=== PATIENT | male | born 1995 | race African-American/Black ===

== ENCOUNTER 2020-03-27 14:36 | Emergency (ER) | payer SELFPAY ==
--- OUTSIDE RECORDS SUMMARY | 2020-03-27 14:38 | XMS REPORT | Continuity of Care Document ---
:1995 Author Organization [facility] Address [address] [place] [address] [address]. [address] [place] [address] Care Team Providers Name Role Phone Unavailable Unavailable Unavailable Problems This patient has no known problems. Allergies, Adverse Reactions, Alerts This patient has no known allergies or adverse reactions. Medications This patient has no known medications. Procedures This patient has no known procedures. Results This patient has no known results.
[2020-03-27 15:09] LABS: Absolute Lymphocytes (CBC) 1.6 K/uL (0.7-4.9); Basophils % 0.6 % (0-1.3); Hematocrit 43.4 % (39.6-49.0); Lymphocytes % 16.4 % (15.3-44.8); RBC Red Blood Cell Count 5.45 M/uL (4.33-5.43)
--- NOTE | 2020-03-27 15:13 | ER ---
Nurse's Notes [facility] Name: Mireya Carolina Age: 24 yrs Sex: Male : 1995 Arrival Date: 03/27/2020 Time: 14:40 Bed 7 Private MD: Diagnosis: Insomnia, unspecified;Bipolar disorder Presentation: 03/27 14:45 Chief complaint: Patient states: Hearing voices, going crazy, and wanting to hurt ll1 others for 3 days. Coronavirus screen: Client denies travel out of the [place] in the last 14 days. At this time, the client does not indicate any symptoms associated with coronavirus-19. Ebola Screen: Patient denies travel to an Ebola-affected area in the 21 days before illness onset. Initial Sepsis Screen: Does the patient meet any 2 criteria? No. Patient's initial sepsis screen is negative. Does the patient have a suspected source of infection? No. Patient's initial sepsis screen is negative. Risk Assessment: Do you want to hurt yourself or someone else? Patient reports desire/thoughts of hurting themselves or someone else. Provider notified. Onset of symptoms was March 25, 2020. 14:45 Method Of Arrival: Ambulatory ll1 14:45 Acuity: NIKKY 2 ll1 Historical: - Allergies: 14:44 No Known Allergies; ll1 - PMHx: 14:44 Bipolar disorder; ll1 - PSHx: 14:44 None; ll1 - Immunization history:: Flu vaccine is not up to date. - Social history:: Smoking status: Patient reports the use of cigarette tobacco products, smokes two packs cigarettes per day. Patient uses alcohol, on a daily basis. Screenin:15 Abuse screen: Denies threats or abuse. Nutritional screening: No deficits noted. em Tuberculosis screening: No symptoms or risk factors identified. Fall Risk None identified. Assessment: 15:15 General: Appears in no apparent distress. comfortable, Behavior is calm, cooperative, em quiet. Pain: Denies pain. Neuro: Level of Consciousness is awake, alert, obeys commands, reports auditory hallucinations, denies SI, reports HI. Cardiovascular: Capillary refill < 3 seconds Patient's skin is warm and dry. Respiratory: Airway is patent Respiratory effort is even, unlabored, Respiratory pattern is regular, symmetrical. Derm: Skin is intact, is healthy with good turgor, Skin is pink, warm \T\ dry. Musculoskeletal: Capillary refill < 3 seconds, Range of motion: intact in all extremities. 16:25 Reassessment: Patient appears in no apparent distress at this time. Patient and/or em family updated on plan of care and expected duration. Pain level reassessed. Patient is alert, oriented x 3, equal unlabored respirations, skin warm/dry/pink. 18:21 Reassessment: [facility] screener at bedside. em 18:36 Reassessment: Yen from [facility] recommends outpatient therapy for pt, grandmother em states she feels comfortable taking pt home, Yen will arrange for an outpatient appointment next week. 19:00 Reassessment: Patient appears in no apparent distress at this time. Patient and/or tw2 family updated on plan of care and expected duration. Pain level reassessed. Patient is alert, oriented x 3, equal unlabored respirations, skin warm/dry/pink. Psych: 15:15 Subjective: Patient's mood is sad, Delusions are denied, Hallucinations are auditory, em Having thoughts of homicide. Denies plan. Objective: Patient is cooperative, Speech is normal, Affect is appropriate. Interventions: Patient placed in hospital gown. Searched person for dangerous items. Suicide Risk Assessment: Sad Person Scale: Sex of patient: Male: Score 1 point. Age of patient: Score 1 point if patient 15-34. Depression: Score 0 point if signs of depression are not present. Previous Attempt: Score 0 point if patient has not previously attempted suicide. Substance Abuse: Score 0 point if patient does not abuse alcohol or drugs. Rational Thinking: Score 0 point if patient has rational thinking. Social Support: Score 1 point if social support is lacking and/or unavailable. Organized Plan: Score 0 if patient did not have an organized plan in place. Relationship: Score 1 point if patient is , , , or for a single male Chronic Sickness: Score 0 point if patient does not have a chronic illness, debilitating, or severe disorder. TOTAL POINTS: If total points are 3-4, proposed clinical action is close follow-up/consider hospitalization. Safety Checks: Personal items have been removed. Door is open. Visitors are present. Pt denies substance abuse. Commitment: Patient will be a voluntary commitment. Vital Signs: 14:45 BP 131 / 85; Pulse 63; Resp 17; Temp 98.6; Pulse Ox 100% ; Height 5 ft. 4 in. (162.56 ll1 cm); Pain 0/10; 17:33 BP 122 / 90; Pulse 57; Resp 17; Pulse Ox 99% on R/A; mt 18:59 BP 124 / 76; Pulse 64; Resp 17; Pulse Ox 99% on R/A; tw2 ED Course: 14:40 Patient arrived in ED. mr 14:41 Sam Yanez MD is Attending Physician. jt 14:46 Triage completed. ll1 14:46 Arm band placed on Patient placed in an exam room, on a stretcher. ll1 14:55 Chaparro oBrrego, RN is Primary Nurse. em 15:15 Patient has correct armband on for positive identification. Placed in gown. Bed in low em position. Call light in reach. 15:15 Inserted saline lock: 20 gauge in left antecubital area, using aseptic technique. Blood mt collected. 15:24 EKG done, by ED staff, reviewed by Sam Yanez MD. mt 15:30 [facility], sitting one on one with patient. mt 16:29 Faxed patient records to the following facilities in the attempt to transfer/ [facility], [facility], [facility], [facility], [facility], [facility], [facility] , [facility] , [facility] [place], [facility], [facility] and [facility]. 17:29 called the [facility] Crisis Line at [phone]/ Marquita will be paging out the screener eb quality control inspector heading to call us back. 18:10 the [facility] Screener here to evaluate the patient. eb 18:17 Salina from [facility] called to decline patient in transfer due to eb being at capacity. 18:45 No provider procedures requiring assistance completed. Patient did not have IV access em during this emergency room visit. Administered Medications: 15:09 Drug: NS 0.9% 1000 ml Route: IV; Rate: 1 bolus; Site: left antecubital; em 16:23 Follow up: IV Status: Completed infusion; IV Intake: 1000ml em 16:30 Drug: Ativan 1 mg Route: IVP; Site: left antecubital; em 17:30 Follow up: Response: No adverse reaction; Marked relief of symptoms; Anxiety decreased em Intake: 16:23 IV: 1000ml; Total: 1000ml. em Outcome: 15:12 ER care complete, transfer ordered by . [facility] 18:45 Discharge ordered by . [facility] 18:59 Discharged to home ambulatory, with family. tw2 18:59 Condition: stable 18:59 Discharge instructions given to patient, family, Instructed on discharge instructions, follow up and referral plans. medication usage, Demonstrated understanding of instructions, follow-up care, medications, Prescriptions given X 1. 19:02 Patient left the ED. tw2 Signatures: Sam Yanez MD MD cha Rivera, Mary mr Munoz, Edgar, RN RN Shira Gonzalez RN RN [facility] Fatuma La mt, Elizabeth eb Lewis, Lynsay, RN RN ll1
--- NOTE | 2020-03-27 15:13 | EDPHYS ---
Physician Documentation [facility] Name: Mireya Carolina Age: 24 yrs Sex: Male : 1995 Arrival Date: 03/27/2020 Time: 14:40 Bed 7 Private MD: CINDY Physician Sam Yanez HPI: 03/27 14:56 This 24 yrs old Black Male presents to ER via Ambulatory with complaints of Psych jt Problem. 14:56 The patient presents to the emergency department with psychosis, has experienced jt auditory hallucinations. Onset: The symptoms/episode began/occurred 5 day(s) ago. Past psychiatric history: Prior diagnosis: no previous psychiatric diagnosis known. Severity of symptoms: At their worst the symptoms were mild moderate in the emergency department the symptoms are unchanged. The patient has experienced similar episodes in the past, several times. Historical: - Allergies: 14:44 No Known Allergies; ll1 - PMHx: 14:44 Bipolar disorder; ll1 - PSHx: 14:44 None; ll1 - Immunization history:: Flu vaccine is not up to date. - Social history:: Smoking status: Patient reports the use of cigarette tobacco products, smokes two packs cigarettes per day. Patient uses alcohol, on a daily basis. ROS: 14:57 Constitutional: Negative for fever, chills, and weight loss, Eyes: Negative for injury, jt pain, redness, and discharge, ENT: Negative for injury, pain, and discharge, Neck: Negative for injury, pain, and swelling, Cardiovascular: Negative for chest pain, palpitations, and edema, Respiratory: Negative for shortness of breath, cough, wheezing, and pleuritic chest pain, Abdomen/GI: Negative for abdominal pain, nausea, vomiting, diarrhea, and constipation, Back: Negative for injury and pain, : Negative for injury, bleeding, discharge, and swelling, MS/Extremity: Negative for injury and deformity, Skin: Negative for injury, rash, and discoloration, Neuro: Negative for headache, weakness, numbness, tingling, and seizure, Allergy/Immunology: Negative for hives, rash, and allergies, Endocrine: Negative for neck swelling, polydipsia, polyuria, polyphagia, and marked weight changes, Hematologic/Lymphatic: Negative for swollen nodes, abnormal bleeding, and unusual bruising. 14:57 Psych: Positive for auditory hallucinations. Exam: 14:57 Constitutional: This is a well developed, well nourished patient who is awake, alert, jt and in no acute distress. Head/Face: Normocephalic, atraumatic. Eyes: Pupils equal round and reactive to light, extra-ocular motions intact. Lids and lashes normal. Conjunctiva and sclera are non-icteric and not injected. Cornea within normal limits. Periorbital areas with no swelling, redness, or edema. ENT: Nares patent. No nasal discharge, no septal abnormalities noted. Tympanic membranes are normal and external auditory canals are clear. Oropharynx with no redness, swelling, or masses, exudates, or evidence of obstruction, uvula midline. Mucous membranes moist. Neck: Trachea midline, no thyromegaly or masses palpated, and no cervical lymphadenopathy. Supple, full range of motion without nuchal rigidity, or vertebral point tenderness. No Meningismus. Chest/axilla: Normal chest wall appearance and motion. Nontender with no deformity. No lesions are appreciated. Cardiovascular: Regular rate and rhythm with a normal S1 and S2. No gallops, murmurs, or rubs. Normal PMI, no JVD. No pulse deficits. Respiratory: Lungs have equal breath sounds bilaterally, clear to auscultation and percussion. No rales, rhonchi or wheezes noted. No increased work of breathing, no retractions or nasal flaring. Abdomen/GI: Soft, non-tender, with normal bowel sounds. No distension or tympany. No guarding or rebound. No evidence of tenderness throughout. Back: No spinal tenderness. No costovertebral tenderness. Full range of motion. Male : Normal genitalia with no discharge or lesions. Skin: Warm, dry with normal turgor. Normal color with no rashes, no lesions, and no evidence of cellulitis. MS/ Extremity: Pulses equal, no cyanosis. Neurovascular intact. Full, normal range of motion. Neuro: Awake and alert, GCS 15, oriented to person, place, time, and situation. Cranial nerves II-XII grossly intact. Motor strength 5/5 in all extremities. Sensory grossly intact. Cerebellar exam normal. Normal gait. 14:57 Psych: Behavior/mood is pleasant, Affect is animated, Oriented to person, place, time, Patient has no thoughts/intents to harm self or others. Judgement / Insight is normal. Memory is normal. Delusions/hallucinations are present and described as AUDITORY ONLY. 15:39 ECG was reviewed by the Attending Physician. [facility] Vital Signs: 14:45 BP 131 / 85; Pulse 63; Resp 17; Temp 98.6; Pulse Ox 100% ; Height 5 ft. 4 in. (162.56 ll1 cm); Pain 0/10; 17:33 BP 122 / 90; Pulse 57; Resp 17; Pulse Ox 99% on R/A; mt 18:59 BP 124 / 76; Pulse 64; Resp 17; Pulse Ox 99% on R/A; tw2 MDM: 14:49 Patient medically screened. jt 14:59 Differential diagnosis: drug withdrawal. acute psychotic break, depression, psychosis jt secondary to non-compliance. Data reviewed: vital signs, nurses notes, lab test result(s), EKG. Data interpreted: exhibit cleaner: rate is 63 beats/min, rhythm is regular, Pulse oximetry: on room air is 100 %. Test interpretation: by ED physician or midlevel provider: ECG. Counseling: I had a detailed discussion with the patient and/or guardian regarding: the historical points, exam findings, and any diagnostic results supporting the discharge/admit diagnosis, lab results. 03/27 14:55 Order name: Acetaminophen; Complete Time: 16:21 [facility] 03/27 14:55 Order name: Basic Metabolic Panel; Complete Time: 16:21 [facility] 03/27 14:55 Order name: CBC with Diff; Complete Time: 16:21 [facility] 03/27 14:55 Order name: ETOH Level; Complete Time: 16:21 [facility] 03/27 14:55 Order name: Hepatic Function; Complete Time: 16:21 [facility] 03/27 14:55 Order name: PT-INR; Complete Time: 16:21 [facility] 03/27 14:55 Order name: Ptt, Activated; Complete Time: 16:21 [facility] 03/27 14:55 Order name: Salicylate; Complete Time: 16:21 [facility] 03/27 14:55 Order name: Urine Drug Screen; Complete Time: 16:21 [facility] 03/27 14:55 Order name: EKG; Complete Time: 14:56 [facility] 03/27 14:55 Order name: EKG - Nurse/Tech; Complete Time: 15:24 [facility] 03/27 15:10 Order name: Urine Dipstick--Ancillary (enter results); Complete Time: 17:47 eb 03/27 14:55 Order name: IV Saline Lock; Complete Time: 15:16 [facility] 03/27 14:55 Order name: Labs collected and sent; Complete Time: 15:16 [facility] 03/27 14:55 Order name: Urine Dipstick-Ancillary (obtain specimen); Complete Time: 15:16 [facility] EC:39 Rate is 57 beats/min. Rhythm is regular. QRS [place] is Normal. WA interval is normal. QRS jt interval is normal. QT interval is normal. No Q waves. T waves are Normal. No ST changes noted. Clinical impression: Normal ECG and No evidence of ischemia. Interpreted by me. Reviewed by me. Administered Medications: 15:09 Drug: NS 0.9% 1000 ml Route: IV; Rate: 1 bolus; Site: left antecubital; em 16:23 Follow up: IV Status: Completed infusion; IV Intake: 1000ml em 16:30 Drug: Ativan 1 mg Route: IVP; Site: left antecubital; em 17:30 Follow up: Response: No adverse reaction; Marked relief of symptoms; Anxiety decreased em Disposition: 03/27/20 18:45 Discharged to Home. Impression: Insomnia, unspecified, Bipolar disorder. - Condition is Stable. - Discharge Instructions: Insomnia, Bipolar Disorder. - Prescriptions for Hydroxyzine HCl 25 mg Oral Tablet - take 1 tablet by ORAL route every 6 hours As needed; 30 tablet. - Medication Reconciliation Form, Thank You Letter, Antibiotic Education, Prescription Opioid Use form. - Follow up: Private Physician; When: 2 - 3 days; Reason: Recheck today's complaints, Continuance of care, Re-evaluation by your physician. - Problem is new. - Symptoms have improved. Signatures: Dispatcher [employer] Sam Montanez MD MD cha Munoz, Edgar RN RN Shira Steele RN RN tw2 Dee Dee Cohen RN RN ll1 Corrections: (The following items were deleted from the chart) 18:44 15:12 03/27/2020 15:12 Transfer ordered to Psych Facility. Diagnosis is Bipolar jt disorder; Hallucinations, unspecified. Reason for transfer: Higher level of care. Accepting physician is TO PSYCH TREATMENT. Condition is Stable. Problem is new. Symptoms have improved. [facility] 19:02 18:45 03/27/2020 18:45 Discharged to Home. Impression: Insomnia, unspecified; Bipolar tw2 disorder. Condition is Stable. Forms are Medication Reconciliation Form, Thank You Letter, Antibiotic Education, Prescription Opioid Use. Follow up: Private Physician; When: 2 - 3 days; Reason: Recheck today's complaints, Continuance of care, Re-evaluation by your physician. Problem is new. Symptoms have improved. jt
[2020-03-27] MEDS ORDERED: NA CHLORIDE 0.9% 1,000 ML ONE (15:16)
[2020-03-27 15:28] LABS: Protime INR 0.97
[2020-03-27 15:38] LABS: Barbiturates NEGATIVE (NEGATIVE); Benzodiazepines NEGATIVE (NEGATIVE); Cocaine NEGATIVE (NEGATIVE); METHAMPHETAM NEGATIVE (NEGATIVE); Methadone NEGATIVE (NEGATIVE); Opiates NEGATIVE (NEGATIVE); Phencyclidine NEGATIVE (NEGATIVE); THC Cannibis NEGATIVE (NEGATIVE)
[2020-03-27 16:10] LABS: ALT/SGPT 21 U/L (12-78); AST/SGOT 15 U/L (15-37); Albumin 3.8 g/dL (3.4-5.0); Alkaline Phosphatase 50 U/L (45-117); BUN Blood Urea Nitrogen 7 mg/dL (7-18); Bicarbonate 32 mmol/L (21-32); Bilirubin Direct 0.2 mg/dL (0-0.2); Bilirubin Total 0.5 mg/dL (0.2-1.0); Glucose Level 81 mg/dL (74-106); Potassium 3.9 mmol/L (3.5-5.1); Protein, Total 7.5 g/dL (6.4-8.2); Sodium Level 135 mmol/L (136-145)
[2020-03-27 16:21] LABS: Urine Blood NEGATIVE (NEG); Urine Glucose NEGATIVE (NEG); Urine Protein NEGATIVE (NEG)
[2020-03-27] MEDS ORDERED: LORazepam 2 MG/ML VIAL ONE (16:40)
[2020-03-27 19:09] VITALS: TEMP 98.6
[2020-03-27 19:10] VITALS: O2SAT 99
[2020-03-27 19:12] VITALS: BP 124/76
--- NOTE | 2020-03-29 11:14 | EKG ---
Test Date: 2020-03-27 Test Time: 15:25:02 Machine Driller: DILIP MEASUREMENT RESULTS: Intervals: Rate: 57 ME: 120 QRSD: 78 QT: 372 QTc: 362 [place]: P: 70 ME: 120 QRS: 89 T: 58 INTERPRETIVE STATEMENTS: Sinus bradycardia Otherwise normal ECG No previous ECG available for comparison Electronically Signed On 03-29-20 11:13:32 CDT by Nithin Davis
== END 2020-03-27 19:02 | disposition home or self-care (01) ==
LOC: ER 14:36
DX: G47.00 Insomnia, unspecified (principal); F31.9 Bipolar disorder, unspecified; F17.210 Nicotine dependence, cigarettes, uncomplicated
CPT/HCPCS: 36415; 80048; 80076; 80307; 80320; 80329; 81003; 85025; 85610; 85730; 93005; 96361; 96374; 99285; J7030

== ENCOUNTER 2020-07-27 17:27 | Emergency (ER) | payer SELFPAY ==
--- NOTE | 2020-07-27 21:17 | ER ---
Nurse's Notes [facility] Name: Mireya Carolina Age: 24 yrs Sex: Male : 1995 Arrival Date: 07/27/2020 Time: 17:29 Bed 16 Private MD: Diagnosis: Presentation: 07/27 17:33 Chief complaint: Patient states: Went to [facility] and had an IM injection of Invega sv on Monday. Then 2 days ago started having a reaction to the injection possibly and was acting like a "zombie." This was his 1st time having this injection. Coronavirus screen: Client denies travel out of the [place] in the last 14 days. At this time, the client does not indicate any symptoms associated with coronavirus-19. Ebola Screen: No symptoms or risks identified at this time. Onset: The symptoms/episode began/occurred 2 day(s) ago. Anaphylaxis evaluation, no signs or symptoms of anaphylaxis were noted. Risk Assessment: Do you want to hurt yourself or someone else? Patient reports no desire to harm self or others. Onset of symptoms was July 25, 2020. 17:33 Method Of Arrival: Ambulatory sv 17:33 Acuity: NIKKY 3 sv 17:36 Initial Sepsis Screen: Does the patient meet any 2 criteria? HR > 90 bpm. No. Patient's sv initial sepsis screen is negative. Does the patient have a suspected source of infection? No. Patient's initial sepsis screen is negative. Triage Assessment: 17:38 General: Appears in no apparent distress. uncomfortable, Behavior is calm, cooperative, sv appropriate for age. Neuro: Level of Consciousness is awake, alert, obeys commands, Oriented to person, place, time, situation, Gait is steady. Respiratory: Respiratory effort is even, unlabored. Historical: - Allergies: 17:36 No Known Allergies; sv - PMHx: 17:36 Bipolar disorder; Schizophrenia; sv - PSHx: 17:36 None; sv - Immunization history:: Adult Immunizations up to date. - Social history:: Smoking status: Patient reports the use of cigarette tobacco products, smokes one-half pack cigarettes per day, Reported history of juuling and/or vaping. Patient/guardian denies using alcohol, street drugs. Vital Signs: 17:36 BP 136 / 92; Pulse 120; Resp 16; Temp 97.4; Pulse Ox 100% ; Height 5 ft. 6 in. (167.64 sv cm); ED Course: 17:29 Patient arrived in ED. mr 17:33 Arm band placed on. sv 17:36 Triage completed. sv 21:16 Gavin Merino PA is PHCP. dimitri 21:16 J Carlos Martinez MD is Attending Physician. dimitri Administered Medications: No medications were administered Outcome: 21:17 Patient left the ED. ll1 Signatures: Karina Wilson, RN RN Gavin Merino PA PA jmm Rivera, Mary mr Dee Dee Cohen RN RN ll1 Corrections: (The following items were deleted from the chart) 17:38 17:36 Pulse 120bpm; Resp 16bpm; Pulse Ox 100%; Temp 97.4F; Height 5 ft. 6 in.; sv sv
[2020-07-27 22:22] VITALS: BP 136/92; TEMP 97.4; O2SAT 100
--- OUTSIDE RECORDS SUMMARY | 2020-07-29 02:12 | XMS REPORT | Continuity of Care Document ---
:1995 Author Organization [facility] t Address [address] [place] [address] [address]. [address] [place] [address] Care Team Providers Name Role Phone Unavailable Unavailable Unavailable Problems This patient has no known problems. Allergies, Adverse Reactions, Alerts This patient has no known allergies or adverse reactions. Medications This patient has no known medications. Procedures This patient has no known procedures. Results This patient has no known results.
== END 2020-07-27 21:17 | disposition left against medical advice (07) ==
LOC: ER 17:27
DX: R41.9 Unspecified symptoms and signs involving cognitive functions and awareness (principal); F17.210 Nicotine dependence, cigarettes, uncomplicated; Z53.21 Procedure and treatment not carried out due to patient leaving prior to being seen by health care provider
CPT/HCPCS: 99281

== ENCOUNTER 2020-07-28 05:35 | Emergency (ER) | payer SELFPAY ==
--- NOTE | 2020-07-28 06:31 | EDPHYS ---
Physician Documentation [facility] Name: Mireya Carolina Age: 24 yrs Sex: Male : 1995 Arrival Date: 07/28/2020 Time: 05:35 Bed 8 Private MD: ED Physician J Carlos Martinez HPI: 07/28 06:27 This 24 yrs old Black Male presents to ER via Ambulatory with complaints of Reaction To ma2 Medicine. 06:27 This 24 yrs old Black Male presents to ER via Ambulatory with complaints of psychosis. ma2 06:27 Onset: The symptoms/episode began/occurred gradually, 1 day(s) ago. Severity of ma2 symptoms: At their worst the symptoms were very mild in the emergency department the symptoms are unchanged. The patient has experienced similar episodes in the past. patient has delusions he thinks he has hearing aids to he can talk to voices and people that are talking to him,, he has no allergic reactions. 06:31 no si or hi. ma2 Historical: - Allergies: 05:52 No Known Allergies; rv - PMHx: 05:52 Bipolar disorder; Schizophrenia; rv - PSHx: 05:52 None; rv - Immunization history:: Adult Immunizations up to date. - Social history:: Smoking status: Patient reports the use of cigarette tobacco products, smokes two packs cigarettes per day. - Family history:: not pertinent. ROS: 06:27 Constitutional: Negative for fever, chills, and weight loss. ma2 06:27 All other systems are negative. Exam: 06:27 Constitutional: This is a well developed, well nourished patient who is awake, alert, ma2 and in no acute distress. Chest/axilla: Normal chest wall appearance and motion. Nontender with no deformity. No lesions are appreciated. Cardiovascular: Regular rate and rhythm with a normal S1 and S2. No gallops, murmurs, or rubs. Normal PMI, no JVD. No pulse deficits. Respiratory: Lungs have equal breath sounds bilaterally, clear to auscultation and percussion. No rales, rhonchi or wheezes noted. No increased work of breathing, no retractions or nasal flaring. Abdomen/GI: Soft, non-tender, with normal bowel sounds. No distension or tympany. No guarding or rebound. No evidence of tenderness throughout. MS/ Extremity: Pulses equal, no cyanosis. Neurovascular intact. Full, normal range of motion. Neuro: Awake and alert, GCS 15, oriented to person, place, time, and situation. Cranial nerves II-XII grossly intact. Motor strength 5/5 in all extremities. Sensory grossly intact. Cerebellar exam normal. Normal gait. Psych: has mild psychosis, Awake, alert, with orientation to person, place and time. Behavior, mood, and affect are within normal limits. Vital Signs: 05:49 BP 130 / 78; Pulse 96; Resp 16; Temp 98; Pulse Ox 100% ; Weight 49.9 kg; Height 5 ft. 6 rv in. (167.64 cm); Pain 0/10; 05:49 Body Mass Index 17.75 (49.90 kg, 167.64 cm) rv MDM: 05:52 Patient medically screened. ma2 06:27 Differential Diagnosis acute psychosis vs schizophrenia vs drug reaction . Data ma2 reviewed: vital signs, nurses notes. Counseling: I had a detailed discussion with the patient and/or guardian regarding: the historical points, exam findings, and any diagnostic results supporting the discharge/admit diagnosis, the presence of at least one elevated blood pressure reading (>120/80) during this emergency department visit, the need for outpatient follow up. Response to treatment: the patient's symptoms have markedly improved after treatment. ED course: they have follow up with psychiatrist tomorrow . Administered Medications: No medications were administered Disposition: 07/28/20 06:30 Discharged to Home. Impression: Schizophrenia. - Condition is Stable. - Discharge Instructions: Schizophrenia. - Medication Reconciliation Form, Thank You Letter, Antibiotic Education, Prescription Opioid Use form. - Follow up: Private Physician; When: Tomorrow; Reason: Continuance of care. Signatures: J Carlos Martinez MD MD ma2 Lamonte Dunlap RN RN rv Corrections: (The following items were deleted from the chart) 06:37 06:30 07/28/2020 06:30 Discharged to Home. Impression: Schizophrenia. Condition is rv Stable. Forms are Medication Reconciliation Form, Thank You Letter, Antibiotic Education, Prescription Opioid Use. Follow up: Private Physician; When: Tomorrow; Reason: Continuance of care. ma2
--- NOTE | 2020-07-28 06:31 | ER ---
Nurse's Notes [facility] Name: Mireya Carolina Age: 24 yrs Sex: Male : 1995 Arrival Date: 07/28/2020 Time: 05:35 Bed 8 Private MD: Diagnosis: Schizophrenia Presentation: 07/28 05:49 Chief complaint: Parent and/or Guardian states: HE HAS SCHIZOPHRENIA, HE GOT A SHOT OF rv [place] LAST MONDAY, AND HE IS NOT ACTING RIGHT. HE SAID HE IS HEARING VOICES. AND I TALKED TO [facility], THEY SAID TO BRING HIM IN THE ER TO MAKE SURE HE IS NOT HAVING A REACTION TO THE MEDICATION BECAUSE HE IS SCHEDULED FOR A SECOND SHOT TOMORROW AND THEY WOULD LIKE TO KNOW IF HE WOULD GET IT OR NOT. Coronavirus screen: Client denies travel out of the [place] in the last 14 days. Ebola Screen: No symptoms or risks identified at this time. Initial Sepsis Screen: Does the patient meet any 2 criteria? No. Patient's initial sepsis screen is negative. Does the patient have a suspected source of infection? No. Patient's initial sepsis screen is negative. Risk Assessment: Do you want to hurt yourself or someone else? Patient reports no desire to harm self or others. Onset of symptoms is unknown. 05:49 Method Of Arrival: Ambulatory rv 05:49 Acuity: NIKKY 5 rv Triage Assessment: 05:52 General: Appears comfortable, Behavior is calm, cooperative. Pain: Denies pain. EENT: rv No signs and/or symptoms were reported regarding the EENT system. Neuro: Level of Consciousness is confused, Oriented to person, place. Cardiovascular: Patient's skin is warm and dry. Respiratory: Airway is patent Respiratory effort is even, unlabored. Derm: Skin is intact. Historical: - Allergies: 05:52 No Known Allergies; rv - PMHx: 05:52 Bipolar disorder; Schizophrenia; rv - PSHx: 05:52 None; rv - Immunization history:: Adult Immunizations up to date. - Social history:: Smoking status: Patient reports the use of cigarette tobacco products, smokes two packs cigarettes per day. - Family history:: not pertinent. Screenin:53 Abuse screen: Denies threats or abuse. Denies injuries from another. Nutritional rv screening: No deficits noted. Tuberculosis screening: No symptoms or risk factors identified. Fall Risk None identified. Vital Signs: 05:49 BP 130 / 78; Pulse 96; Resp 16; Temp 98; Pulse Ox 100% ; Weight 49.9 kg; Height 5 ft. 6 rv in. (167.64 cm); Pain 0/10; 05:49 Body Mass Index 17.75 (49.90 kg, 167.64 cm) rv ED Course: 05:35 Patient arrived in ED. cf2 05:49 Lamonte Dunlap, RAUL is Primary Nurse. rv 05:52 J Carlos Martinez MD is Attending Physician. ma2 05:52 Triage completed. rv 05:53 Arm band placed on right wrist. Patient placed in the treatment room, on a stretcher, rv Patient notified of wait time. 05:53 Patient has correct armband on for positive identification. Pulse ox on. NIBP on. rv 06:36 No provider procedures requiring assistance completed. Patient did not have IV access rv during this emergency room visit. Administered Medications: No medications were administered Outcome: 06:30 Discharge ordered by . ma2 06:36 Discharged to home ambulatory. rv 06:36 Condition: good 06:36 Discharge instructions given to patient, family, Instructed on discharge instructions, follow up and referral plans. Demonstrated understanding of instructions, follow-up care. 06:37 Patient left the ED. rv Signatures: J Carlos Martinez MD MD ny2 Lamonte Dunlap RN RN rv Leonila Cuello cf2 Corrections: (The following items were deleted from the chart) 05:56 05:49 Chief complaint: Parent and/or Guardian states: HE HAS SCHIZOPHRENIA, HE GOT A rv SHOT OF INVESA LAST MONDAY, AND HE IS NOT ACTING RIGHT. HE SAID HE IS HEARING VOICES. AND I TALKED TO [facility], THEY SAID TO BRING HIM IN THE ER TO MAKE SURE HE IS NOT HAVING A REACTION TO THE MEDICATION BECAUSE HE IS SCHEDULED FOR A SECOND SHOT TOMORROW AND THEY WOULD LIKE TO KNOW IF HE WOULD GET IT OR NOT. rv
[2020-07-28 06:43] VITALS: BP 130/78; TEMP 98; O2SAT 100
--- OUTSIDE RECORDS SUMMARY | 2020-07-29 02:44 | XMS REPORT | Continuity of Care Document ---
:1995 Author Organization [facility] t Address [address] [place] [address] [address]. [address] [place] [address] Care Team Providers Name Role Phone Unavailable Unavailable Unavailable Problems This patient has no known problems. Allergies, Adverse Reactions, Alerts This patient has no known allergies or adverse reactions. Medications This patient has no known medications. Procedures This patient has no known procedures. Results This patient has no known results.
== END 2020-07-28 06:37 | disposition home or self-care (01) ==
LOC: ER 05:35
DX: F20.9 Schizophrenia, unspecified (principal); F17.210 Nicotine dependence, cigarettes, uncomplicated
CPT/HCPCS: 99283

== ENCOUNTER 2023-03-24 16:43 | Emergency (ER) | payer OTHER ==
--- OUTSIDE RECORDS SUMMARY | 2023-03-24 16:47 | XMS REPORT | Continuity of Care Document ---
:[address] [facility] t Address [address] [facility] [address] [place] [address] Care Team Providers Name Role Phone Unavailable Unavailable Unavailable Payers Payer Name Policy Type Policy Number Effective Date Expiration Date S ource Problems This patient has no known problems. Allergies, Adverse Reactions, Alerts Allergy Allergy Status Severity Reaction(s) Onset Inactive Treating Comm ents Source Name Type Date Date Clinician No Known DA Active U [facility] Drug 09-11 Allergie 00:00: s 00 No Known DA Active U 2019-06 [facility] 08-16 Allergie 00:00: s 00 Medications This patient has no known medications. Vital Signs Vital Name Observation Time Observation Value Comments Source 02 Sat by Pulse Oximetry 2020-09-11 23:57:02 98 /min Pulse Rate 2020-09-11 23:57:02 94 /min Respiratory Rate 2020-09-11 23:57:02 18 /min Temperature 2020-09-11 23:57:02 36.6\S\97.8 02 Sat by Pulse Oximetry 2020-09-11 23:56:00 98 /min Pulse Rate 2020-09-11 23:56:00 94 /min Respiratory Rate 2020-09-11 23:56:00 18 /min Temperature 2020-09-11 23:56:00 36.6\S\97.8 02 Sat by Pulse Oximetry 2020-09-11 23:30:33 98 /min Pulse Rate 2020-09-11 23:30:33 94 /min Respiratory Rate 2020-09-11 23:30:33 18 /min Temperature 2020-09-11 23:30:33 36.6\S\97.8 02 Sat by Pulse Oximetry 2020-09-11 22:38:36 98 /min Pulse Rate 2020-09-11 22:38:36 94 /min Respiratory Rate 2020-09-11 22:38:36 18 /min Temperature 2020-09-11 22:38:36 36.6\S\97.8 02 Sat by Pulse Oximetry 2020-09-11 22:20:47 98 /min Pulse Rate 2020-09-11 22:20:47 94 /min Respiratory Rate 2020-09-11 22:20:47 18 /min Temperature 2020-09-11 22:20:47 36.6\S\97.8 02 Sat by Pulse Oximetry 2020-09-11 21:53:48 98 /min Pulse Rate 2020-09-11 21:53:48 94 /min Respiratory Rate 2020-09-11 21:53:48 18 /min Temperature 2020-09-11 21:53:48 36.6\S\97.8 02 Sat by Pulse Oximetry 2020-09-11 21:53:17 98 /min Pulse Rate 2020-09-11 21:53:17 94 /min Respiratory Rate 2020-09-11 21:53:17 18 /min Temperature 2020-09-11 21:53:17 36.6\S\97.8 02 Sat by Pulse Oximetry 2020-06-15 17:27:43 100 /min Body Mass Index 2020-06-15 17:27:43 21.6 Height 2020-06-15 17:27:43 165.1\S\65 Pulse Rate 2020-06-15 17:27:43 64 /min Respiratory Rate 2020-06-15 17:27:43 16 /min Temperature 2020-06-15 17:27:43 37.1\S\98.8 Weight 2020-06-15 17:27:43 74214.008\S\2080 Weight Measurement Method 2020-06-15 17:27:43 Estimated by Staff 02 Sat by Pulse Oximetry 2020-06-15 14:29:44 100 /min Body Mass Index 2020-06-15 14:29:44 21.6 Height 2020-06-15 14:29:44 165.1\S\65 Pulse Rate 2020-06-15 14:29:44 64 /min Respiratory Rate 2020-06-15 14:29:44 16 /min Temperature 2020-06-15 14:29:44 37.1\S\98.8 Weight 2020-06-15 14:29:44 21583.008\S\0 Weight Measurement Method 2020-06-15 14:29:44 Estimated by Staff 02 Sat by Pulse Oximetry 2020-06-15 14:27:09 100 /min Body Mass Index 2020-06-15 14:27:09 21.6 Height 2020-06-15 14:27:09 165.1\S\65 Pulse Rate 2020-06-15 14:27:09 64 /min Respiratory Rate 2020-06-15 14:27:09 16 /min Temperature 2020-06-15 14:27:09 37.1\S\98.8 Weight 2020-06-15 14:27:09 07628.008\S Weight Measurement Method 2020-06-15 14:27:09 Estimated by Staff 02 Sat by Pulse Oximetry 2020-06-15 13:47:11 100 /min Body Mass Index 2020-06-15 13:47:11 21.6 Height 2020-06-15 13:47:11 165.1\S\65 Pulse Rate 2020-06-15 13:47:11 64 /min Respiratory Rate 2020-06-15 13:47:11 16 /min Temperature 2020-06-15 13:47:11 37.1\S\98.8 Weight 2020-06-15 13:47:11 09622.008\S Weight Measurement Method 2020-06-15 13:47:11 Estimated by Staff 02 Sat by Pulse Oximetry 2020-06-15 13:46:09 100 /min Body Mass Index 2020-06-15 13:46:09 21.6 Height 2020-06-15 13:46:09 165.1\S\65 Pulse Rate 2020-06-15 13:46:09 64 /min Respiratory Rate 2020-06-15 13:46:09 16 /min Temperature 2020-06-15 13:46:09 37.1\S\98.8 Weight 2020-06-15 13:46:09 47444.008\S\0 Weight Measurement Method 2020-06-15 13:46:09 Estimated by Staff 02 Sat by Pulse Oximetry 2020-06-15 13:45:38 100 /min Body Mass Index 2020-06-15 13:45:38 21.6 Height 2020-06-15 13:45:38 165.1\S\65 Pulse Rate 2020-06-15 13:45:38 64 /min Respiratory Rate 2020-06-15 13:45:38 16 /min Temperature 2020-06-15 13:45:38 37.1\S\98.8 Weight 2020-06-15 13:45:38 67702.008\S\0 Weight Measurement Method 2020-06-15 13:45:38 Estimated by Staff WEIGHT 2020-06-15 13:42:00 58.464932 kg HEIGHT 2020-06-15 13:42:00 165.1 cm Procedures This patient has no known procedures. Encounters Start End Encounter Admission Attending Care Care Encounter Source Date/Time Date/Time Type Type Clinicians Facility Department ID 2020-09-11 Inpatient [facility] [id number] [facility] 21:39:00 09 2020-06-15 Inpatient [facility] [id number] [facility] 13:39:00 37 2022-12-23 2022-12-23 Outpatient [facility] 09:21:35 09:21:35 [id number] F Rajendra 2022-12-21 2022-12-21 Outpatient [facility] 13:11:36 13:11:36 [id number] F [place] 2020-09-11 2020-09-11 Emergency [facility] [id number] [facility] 21:39:00 21:39:00 09 2020-06-15 2020-06-15 Emergency [facility] [id number] [facility] 13:39:00 13:39:00 37 Results Test Description Test Time Test Comments Results Result Comments Source Sars-CoV-2/FLU A/B RSV PCR 2020-09-11 22:16:00 Test Item Value Reference Range Interpretation Comme nts Sars-CoV-2/FLU A/B RSV PCR (test code = For use under Emergency Use SARSFLURSVPCR) Authorization (EUA) only. Sars-CoV-2/FLU A/B RSV PCR (test code = Reference Range: Negative SARSFLURSVPCR1.1) Influenza A PCR: (test code = Influenza Negative by Nucleic Acid Amplification A PCR:) Influenza B PCR: (test code = Influenza Negative by Nucleic Acid Amplification B PCR:) RSV PCR Result: (test code = RSV PCR Negative by Nucleic Acid Ampli fication Result:) SARS-CoV-2 PCR Result: (test code = Negative by PCR SARS-CoV-2 PCR Result:) Ethanol [id number] 22:15:00 Test Item Value Reference Range Interpretation Comments Ethanol (test code = ETOH) 5 mg/dL Complete Blood Count Auto [id number] 22:15:00 Test Item Value Reference Range Interpretation Comments White Blood Count (test code = 15.7 x10 3/uL 4.4-10.5 H WBCT) Red Blood Count (test code = 5.66 x10 6/uL 4.10-5.70 N RBC) Hemoglobin (test code = HGBT) 14.9 g/dL 13.4-17.4 N Hematocrit (test code = HCTT) 44.9 % 38.7-52.0 N Mean Corpuscular Volume (test 79.30 fL 80.00-100.00 L code = MCV) Mean Corpuscular Hemoglobin 26.3 pg 27.0-32.5 L (test code = MCH) Mean Corpuscular HGB Conc 33.20 g/dL 32.00-37.50 N (test code = MCHC) RDW Coefficient of Variation 13.6 % 11.5-14.5 N (test code = RDWCV) Platelet Count (test code = 271.0 x10 3/uL 140.0-440.0 N PLTT) Mean Platelet Volume (test 10.9 fL code = MPV) nRBC Abs (test code = NRBCA) 0 nRBC Pct (test code = NRBCP) 0 % UA, Urinalysis Rflx [id number] 22:15:00 Test Item Value Reference Range Interpretation Comments Color,Urine (test code = Yellow Y UCOL) Clarity,Urine (test code = Clear Clear UCLAR) PH,Urine (test code = 6.5 5.5-8.5 UPH.XX) Specific [place],Urine 1.020 1.005-1.030 N (test code = USG) Blood,Urine (test code = Negative cells/uL Negative UBLD) Protein,Urine (test code = Negative mg/dL Negative UPRO) Glucose,Urine (UA) (test Negative mg/dL Negative code = UGLU) Ketones,Urine (test code = Negative mg/dL Negative UKET) Nitrate,Urine (test code = Negative Negative UNIT) Bilirubin,Urine (test code Negative mg/dL Negative = UBIL) Urobilinogen,Urine (test 0.2 mg/dL Negative code = UURO) Leukocyte Esterase,Urine Negative cells/uL Negative (test code = ULEU) Drug Screen,[id number] 22:15:00 Test Item Value Reference Range Interpretation Comments PCP Phencyclidine Screen,Urine (test Negative Negative code = PCPU) Amphetamine Screen,Urine (test code Negative Negative = AMPU) Methadone Screen,Urine (test code = Negative Negative METHU) Opiate Screen,Urine (test code = Negative Negative UOPIS) Barbituates Screen,Urine (test code Negative Negative = BARBU) Benzodiazepines Screen,Urine (test Negative Negative code = UBENZS) Cocaine Screen,Urine (test code = Negative Negative UCOCS) Cannabinoid Screen,Urine (test code Negative Negative = UTHCS) Propoxyphene Screen, Urine (test Negative Negative code = UPROP) Comprehensive Metabolic [id number] 22:15:00 Test Item Value Reference Range Interpretation Comments SODIUM (test code = NA) 135.0 mmol/L 136.0-145.0 L Potassium,K (test code = 3.6 mmol/L 3.0-5.1 N K) Chloride (test code = 101 mmol/L 98-107 N CL) Carbon Dioxide (test 27 mmol/L 20-31 N code = CO2) Anion Gap (test code = 7 mmol/L 5-15 N GAP) Blood Urea Nitrogen < 5 mg/dL 9-23 L (test code = BUN) Creatinine (test code = 0.96 mg/dL 0.55-1.02 N CREATT) Creatinine Clr Calc mL/min Unable t o Pharmacy (test code = Calcul ate CRCL,Ht CRCLPHA) and/or Wt will ng Estimated GFR ( > 60 mL/min/1.73m2 Cate (test code = EGFRAA) Estimated GFR (Non Afr > 60 mL/min/1.73m2 Cate (test code = EGFRNAA) BUN/Creatinine Ratio 5 ratio 10-20 L (test code = BCRATIO) Glucose (test code = 115 mg/dL 74-106 H GLU) Osmolality,Calculated 277.7 (test code = OSMOC) Calcium (test code = CA) 9.3 mg/dL 8.3-10.6 N Bilirubin,Total (test 0.3 mg/dL 0.2-1.1 N code = BILIT) Aspartate Amino 23 U/L 0-34 N Transferase (test code = AST) Alanine Aminotransferase 22 U/L 10-49 N (test code = ALT) Total Protein (test code 7.4 g/dL 5.7-8.2 N = TP) Albumin Level (test code 4.8 g/dL 3.2-4.8 N = ALB) Globulin (test code = 2.6 mg/dL 2.3-3.5 N GLOB) Albumin/Globulin Ratio 1.8 ratio 0.8-2.0 N (test code = AGRATIO) Alkaline Phosphatase 56 U/L 46-116 N (test code = ALP) Sars-CoV-2/FLU A/B RSV [id number] 14:20:00 Test Item Value Reference Range Interpretation Comments Sars-CoV-2/FLU A/B For use under Emergency RSV PCR (test code = Use Authorization (EUA) SARSFLURSVPCR) only. Sars-CoV-2/FLU A/B ical-devices/emergency-u RSV PCR (test code = se-authorizations. SARSFLURSVPCR1.1) Influenza A PCR: Negative by Nucleic Acid (test code = Amplification Influenza A PCR:) Influenza B PCR: Negative by Nucleic Acid (test code = Amplification Influenza B PCR:) RSV PCR Result: (test Negative by Nucleic Acid code = RSV PCR Amplification Result:) SARS-CoV-2 PCR Negative by Nucleic Acid Result: (test code = Amplification SARS-CoV-2 PCR Result:) Comprehensive Metabolic [id number] 14:19:00 Test Item Value Reference Range Interpretation Comments SODIUM (test code = NA) 136.0 mmol/L 136.0-145.0 N Potassium,K (test code = K) 3.6 mmol/L 3.0-5.1 N Chloride (test code = CL) 100 mmol/L 98-107 N Carbon Dioxide (test code = CO2) 30 mmol/L 20-31 N Anion Gap (test code = GAP) 7 mmol/L 5-15 N Blood Urea Nitrogen (test code = 5 mg/dL 9-23 L BUN) Creatinine (test code = CREATT) 0.99 mg/dL 0.55-1.02 N Creatinine Clr Calc Pharmacy 97.62 mL/min (test code = CRCLPHA) Estimated GFR ( Cate > 60 mL/min/1.73m2 (test code = EGFRAA) Estimated GFR (Non Afr Cate > 60 mL/min/1.73m2 (test code = EGFRNAA) BUN/Creatinine Ratio (test code 5 ratio 10-20 L = BCRATIO) Glucose (test code = GLU) 84 mg/dL 74-106 N Osmolality,Calculated (test code 277.7 = OSMOC) Calcium (test code = CA) 9.0 mg/dL 8.3-10.6 N Bilirubin,Total (test code = 0.8 mg/dL 0.2-1.1 N BILIT) Aspartate Amino Transferase 35 U/L 0-34 H (test code = AST) Alanine Aminotransferase (test 41 U/L 10-49 N code = ALT) Total Protein (test code = TP) 7.3 g/dL 5.7-8.2 N Albumin Level (test code = ALB) 4.9 g/dL 3.2-4.8 H Globulin (test code = GLOB) 2.4 mg/dL 2.3-3.5 N Albumin/Globulin Ratio (test 2.0 ratio 0.8-2.0 N code = AGRATIO) Alkaline Phosphatase (test code 48 U/L 46-116 N = ALP) Ethanol [id number] 14:19:00 Test Item Value Reference Range Interpretation Comments Ethanol (test code = ETOH) 9 mg/dL Complete Blood Count Auto [id number] 14:19:00 Test Item Value Reference Range Interpretation Comments White Blood Count (test code = 13.7 x10 3/uL 4.4-10.5 H WBCT) Red Blood Count (test code = 5.62 x10 6/uL 4.10-5.70 N RBC) Hemoglobin (test code = HGBT) 14.6 g/dL 13.4-17.4 N Hematocrit (test code = HCTT) 45.3 % 38.7-52.0 N Mean Corpuscular Volume (test 80.60 fL 80.00-100.00 N code = MCV) Mean Corpuscular Hemoglobin 26.0 pg 27.0-32.5 L (test code = MCH) Mean Corpuscular HGB Conc 32.20 g/dL 32.00-37.50 N (test code = MCHC) RDW Coefficient of Variation 12.9 % 11.5-14.5 N (test code = RDWCV) Platelet Count (test code = 301.0 x10 3/uL 140.0-440.0 N PLTT) Mean Platelet Volume (test 10.8 fL code = MPV) Immature Granulocytes % (Auto) 0.4 % 0.0-5.0 N (test code = IMMGRAN%) Neutrophils % (Auto) (test 69.1 % 36.0-70.0 N code = NE%) Lymphocytes % (Auto) (test 17.7 % 12.0-44.0 N code = LY%) Monocytes % (Auto) (test code 10.1 % 0.0-11.0 N = MO%) Eosinophils % (Auto) (test 2.1 % 0.0-7.0 N code = EO%) Basophils % (Auto) (test code 0.6 % 0.0-2.0 N = BA%) Immature Granulocytes # (Auto) 0.05 x10 3/uL (test code = IMMGRAN#) Neutrophils # (Auto) (test 9.4 x10 3/uL 1.6-7.4 H code = NE#) Lymphocytes # (Auto) (test 2.42 x10 3/uL 0.50-4.60 N code = LY#) Monocytes # (Auto) (test code 1.38 x10 3/uL 0.00-1.20 H = MO#) Eosinophils # (Auto) (test 0.29 x10 3/uL 0.00-0.74 N code = EO#) Basophils # (Auto) (test code 0.08 x10 3/uL 0.00-0.21 N = BA#) nRBC Abs (test code = NRBCA) 0 nRBC Pct (test code = NRBCP) 0 %
[2023-03-24 17:56] LABS: Absolute Lymphocytes (CBC) 2.5 K/uL (0.7-4.9); Hematocrit 44.8 % (39.6-49.0); Lymphocytes % 17.9 % (15.3-44.8); MCV 79.4 fL (80-100); MPV 8.7 fL (7.6-11.3); Platelets 287 thou/uL (152-406); RBC Red Blood Cell Count 5.65 M/uL (4.33-5.43)
--- NOTE | 2023-03-24 18:18 | RAD REPORT ---
EXAM DESCRIPTION: CTFacial Bones W Con Mpr/11/2022 6:07 pm CLINICAL HISTORY: Facial pain and swelling COMPARISON: None. TECHNIQUE: Computed axial tomography of the face obtained with coronal and sagittal reconstruction. 50 cc [id number] scans are performed using dose optimization technique as appropriate and may include automated exposure control or mA/KV adjustment according to patient size. FINDINGS: Edema is present within the subcutaneous tissues of the face bilaterally. Bilateral dental caries Yztn-on-dhvvrdje ethmoid sinusitis. Marked mucoperiosteal thickening right maxillary sinus 10 millimeter lymph node with increased density within the right parotid gland. Left parotid and subm andibular glands are unremarkable Visualized airway patent IMPRESSION: Edema within the subcutaneous tissues of the face bilaterally probably cellulitis Bilateral dental caries Sinusitis 10 millimeter lymph node with increased density right parotid gland likely inflammatory .
--- NOTE | 2023-03-24 18:24 | ER ---
Nurse's Notes [facility] Name: Mireya Carolina Age: 27 yrs Sex: Male : 1995 Arrival Date: 03/24/2023 Time: 16:43 Bed 15 Private MD: Diagnosis: Cellulitis of face;Acute sinusitis, unspecified Presentation: 03/24 17:09 Chief complaint: Right sided facial swelling since last night. Denies injury/pain. hb Coronavirus screen: At this time, the client does not indicate any symptoms associated with coronavirus-19. Ebola Screen: No symptoms or risks identified at this time. Initial Sepsis Screen: Does the patient meet any 2 criteria? No. Patient's initial sepsis screen is negative. Does the patient have a suspected source of infection? No. Patient's initial sepsis screen is negative. Risk Assessment: Do you want to hurt yourself or someone else? Patient reports no desire to harm self or others. Onset of symptoms was March 23, 2023. 17:09 Method Of Arrival: Ambulatory hb 17:09 Acuity: NIKKY 3 hb Historical: - Allergies: 17:10 No Known Allergies; hb - Home Meds: 17:10 Benztropine Mesylate Oral [Active]; olanzapine oral [Active]; Seroquel Oral [Active]; hb - PMHx: 17:10 Bipolar disorder; Schizophrenia; hb - PSHx: 17:10 None; hb - Family history:: not pertinent. Screenin:09 [facility] ED Fall Risk Assessment (Adult) History of falling in the last 3 months, mb9 including since admission No falls in past 3 months (0 pts) Confusion or Disorientation No (0 pts) Intoxicated or Sedated No (0 pts) Impaired Gait No (0 pts) Mobility Assist Device Used No (0 pt) Altered Elimination No (0 pt) Score/Fall Risk Level 0 - 2 = Low Risk Oriented to surroundings, Maintained a safe environment, Educated pt \T\ family on fall prevention, incl call for assistance when getting out of bed. Abuse screen: Denies threats or abuse. Nutritional screening: No deficits noted. Tuberculosis screening: No symptoms or risk factors identified. Assessment: 17:08 General: Appears in no apparent distress. Behavior is calm, cooperative. Pain: Denies mb9 pain. Neuro: Lam Agitation-Sedation Scale (RASS): 0 - Alert and Calm Level of Consciousness is awake, alert, obeys commands, Oriented to person, place, time, situation, Appropriate for age. Cardiovascular: Heart tones S1 S2 present Patient's skin is warm and dry. Respiratory: Airway is patent Respiratory effort is even, unlabored, Respiratory pattern is regular, symmetrical, Breath sounds are clear bilaterally. GI: Abdomen is round non-distended, Bowel sounds present X 4 quads. : No signs and/or symptoms were reported regarding the genitourinary system. EENT: Oral mucosa is moist. Derm: Skin is pink, warm \T\ dry. Musculoskeletal: Swelling present in mouth. 18:00 Reassessment: pt taken to CT via wheelchair. mb9 19:06 Reassessment: Patient and/or family updated on plan of care and expected duration. Pain mb9 level reassessed. Patient is alert, oriented x 3, equal unlabored respirations, skin warm/dry/pink. Patient states feeling better. Patient states symptoms have improved. Vital Signs: 17:09 BP 125 / 85; Pulse 88; Resp 16; Temp 98.4(TE); Pulse Ox 100% on R/A; Weight 55.34 kg; hb Height 5 ft. 4 in. ; Pain 0/10; 17:54 BP 125 / 85; Pulse 84; Resp 18; Pulse Ox 100% on R/A; mb9 17:09 Body Mass Index 20.94 (55.34 kg, 162.56 cm) hb 17:09 Pain Scale: Adult hb ED Course: 16:48 Patient arrived in ED. gm2 16:50 Connor Calhoun MD is Attending Physician. rt 17:05 Racquel Alamo, RAUL is Primary Nurse. mb9 17:06 Arm band placed on. mb9 17:09 Placed in gown. Bed in low position. Call light in reach. Side rails up X 1. Client mb9 placed on continuous cardiac and pulse oximetry monitoring. NIBP monitoring applied. 17:10 Triage completed. hb 17:10 No provider procedures requiring assistance completed. mb9 17:55 Inserted saline lock: 22 gauge in left antecubital area, using aseptic technique. kd3 17:59 Attending Physician role handed off by Connor Calhoun MD rn 17:59 Domingo Pham MD is Attending Physician. rn 18:08 CT Facial Bones W/ Con \T\ Mpr In Process Unspecified. EDMS 18:15 CMP Sent. mb9 19:05 IV discontinued, intact, bleeding controlled, No redness/swelling at site. Pressure mb9 dressing applied. Administered Medications: 18:33 Drug: Rocephin IV 1 grams IV at calculated rate once; Given slow IV push per pharmacy iw instructions Route: IV; Rate: calculated rate; Site: left antecubital; 19:05 Follow up: Response: No adverse reaction; IV Status: Completed infusion mb9 18:39 Drug: Clindamycin IVPB 600 mg IVPB once over 30 mins; (mix in 50 mL) Route: IVPB; iw Infused Over: 30 mins; Site: left antecubital; 19:06 Follow up: Response: No adverse reaction; IV Status: Completed infusion mb9 Medication: 17:09 VIS not applicable for this client. mb9 Outcome: 18:23 Discharge ordered by . rn 19:05 Discharged to home ambulatory, with family, mb9 19:05 Condition: stable 19:05 Discharge instructions given to patient, family, Instructed on discharge instructions, follow up and referral plans. Demonstrated understanding of instructions, follow-up care, medications, Prescriptions given X 2, 19:06 Patient left the ED. mb9 Signatures: Dispatcher [employer] EDMS Saray Piper RN RN iw Domingo Pham MD MD rn Baxter, Heather, RN RN hb Doucette, Kyli, RN RN kd3 Racquel Alamo RN RN mb9 Connor Calhoun MD MD rt Julia Johnson 2
--- NOTE | 2023-03-24 18:24 | EDPHYS ---
Physician Documentation [facility] Name: Mireya Carolina Age: 27 yrs Sex: Male : 1995 Arrival Date: 03/24/2023 Time: 16:43 Bed 15 Private MD: ED Physician Domingo Pham HPI: 03/24 17:21 This 27 yrs old Black Male presents to ER via Ambulatory with complaints of Facial rt Swelling. 17:21 Patient presents to the ED with facial swelling on the right side of his face. He rt noticed it yesterday in the evening. Denies any pain to that region or difficulty swallowing. Denies other acute complaints at this time, symptoms are mild in severity, no other aggravating or alleviating factors.. Historical: - Allergies: 17:10 No Known Allergies; hb - Home Meds: 17:10 Benztropine Mesylate Oral [Active]; olanzapine oral [Active]; Seroquel Oral [Active]; hb - PMHx: 17:10 Bipolar disorder; Schizophrenia; hb - PSHx: 17:10 None; hb - Family history:: not pertinent. ROS: 17:21 Constitutional: Negative for fever, chills, and weight loss, Neck: Negative for injury, rt pain, and swelling, Cardiovascular: Negative for chest pain, palpitations, and edema, Respiratory: Negative for shortness of breath, cough, wheezing, and pleuritic chest pain, Abdomen/GI: Negative for abdominal pain, nausea, vomiting, diarrhea, and constipation, Skin: Negative for injury, rash, and discoloration, Neuro: Negative for headache, weakness, numbness, tingling, and seizure, Psych: Negative for depression, anxiety, suicide ideation, homicidal ideation, and hallucinations, 17:21 ENT: Positive for Facial swelling, denies pain, Exam: 17:21 Constitutional: This is a well developed, well nourished patient who is awake, alert, rt and in no acute distress. Neck: Trachea midline, no thyromegaly or masses palpated, and no cervical lymphadenopathy. Supple, full range of motion without nuchal rigidity, or vertebral point tenderness. No Meningismus. Chest/axilla: Normal chest wall appearance and motion. Nontender with no deformity. No lesions are appreciated. Cardiovascular: Regular rate and rhythm with a normal S1 and S2. No gallops, murmurs, or rubs. Normal PMI, no JVD. No pulse deficits. Respiratory: Lungs have equal breath sounds bilaterally, clear to auscultation and percussion. No rales, rhonchi or wheezes noted. No increased work of breathing, no retractions or nasal flaring. Abdomen/GI: Soft, non-tender, with normal bowel sounds. No distension or tympany. No guarding or rebound. No evidence of tenderness throughout. Skin: Warm, dry with normal turgor. Normal color with no rashes, no lesions, and no evidence of cellulitis. MS/ Extremity: Pulses equal, no cyanosis. Neurovascular intact. Full, normal range of motion. Neuro: Awake and alert, GCS 15, oriented to person, place, time, and situation. Cranial nerves II-XII grossly intact. Motor strength 5/5 in all extremities. Sensory grossly intact. Cerebellar exam normal. Normal gait. Psych: Awake, alert, with orientation to person, place and time. Behavior, mood, and affect are within normal limits. 17:21 Head/face: Swelling overlying the right mandibular area, no erythema, no tenderness, no other facial swelling noted.. 17:21 ENT: Generally poor dentition with multiple dental caries noted on all teeth. Moist mucous membranes, no tenderness, no posterior pharyngeal erythema or exudates, uvula is midline. Vital Signs: 17:09 BP 125 / 85; Pulse 88; Resp 16; Temp 98.4(TE); Pulse Ox 100% on R/A; Weight 55.34 kg; hb Height 5 ft. 4 in. ; Pain 0/10; 17:54 BP 125 / 85; Pulse 84; Resp 18; Pulse Ox 100% on R/A; mb9 17:09 Body Mass Index 20.94 (55.34 kg, 162.56 cm) hb 17:09 Pain Scale: Adult hb MDM: 17:06 Patient medically screened. rt 18:18 Differential Diagnosis Facial cellulitis, abscess, parotitis. Data reviewed: vital rn signs, nurses notes, radiologic studies, CT scan, and as a result, I will discharge patient. Counseling: I had a detailed discussion with the patient and/or guardian regarding the historical points, exam findings, and any diagnostic results supporting the discharge/admit diagnosis, lab results, radiology results, the need for outpatient follow up, to return to the emergency department if symptoms worsen or persist or if there are any questions or concerns that arise at home. Special discussion: I discussed with the patient/guardian in detail that at this point there is no indication for admission to the hospital. It is understood, however, that if the symptoms persist or worsen the patient needs to return immediately for re-evaluation. 03/24 17:13 Order name: CBC with Diff; Complete Time: 18:18 rt 03/24 17:13 Order name: CMP; Complete Time: 18:37 rt 03/24 17:13 Order name: CT Facial Bones W/ Con \T\ Mpr; Complete Time: 18:18 rt 03/24 17:57 Order name: Labs - recollect needed: recollect chemistries/ hemolyzed per lab; Complete eb Time: 18:15 Administered Medications: 18:33 Drug: Rocephin IV 1 grams IV at calculated rate once; Given slow IV push per pharmacy iw instructions Route: IV; Rate: calculated rate; Site: left antecubital; 19:05 Follow up: Response: No adverse reaction; IV Status: Completed infusion mb9 18:39 Drug: Clindamycin IVPB 600 mg IVPB once over 30 mins; (mix in 50 mL) Route: IVPB; iw Infused Over: 30 mins; Site: left antecubital; 19:06 Follow up: Response: No adverse reaction; IV Status: Completed infusion mb9 Disposition Summary: 03/24/23 18:23 Discharge Ordered Notes: Location: Home rn Problem: new rn Symptoms: have improved rn Condition: Stable rn Diagnosis - Cellulitis of face rn - Acute sinusitis, unspecified rn Followup: rn - With: Private Physician - When: As needed - Reason: Recheck today's complaints, Re-evaluation by your physician Discharge Instructions: - Discharge Summary Sheet rn - Cellulitis, Adult rn - Sinusitis, Adult rn Forms: - Medication Reconciliation Form rn - Thank You Letter rn - Antibiotic newspaper photojournalist - Prescription Opioid Use rn - Patient Portal Instructions rn - Leadership Thank You Letter rn Prescriptions: - Augmentin 875-125 mg Oral Tablet - take 1 tablet ORAL route every 12 hours for 10 days; 20 tablet; Refills: 0, rn Product Selection Permitted - Clindamycin HCl 300 mg Oral Capsule - take 1 capsule ORAL route every 6 hours for 10 days; 40 capsule; Refills: 0, rn Product Selection Permitted Signatures: Dispatcher [employer] Saray Lowe RN RN iw Nieto, Roman, MD MD rn Baxter, Heather, RN RN hb Botello, Elizabeth eb [place], Ryan, MD MD rt Jasmeet, Racquel Mauricio RN mb9
[2023-03-24 18:37] LABS: Bilirubin Total 0.5 mg/dL (0.2-1.0); Potassium 3.6 mEq/L (3.5-5.1); Protein, Total 6.7 g/dL (6.4-8.2)
[2023-03-24] MEDS ORDERED: CLINDAMYCIN 600MG/D5W 50 ML IV ONE (18:44)
[2023-03-24] MEDS ORDERED: CEFTRIAXONE 1000 MG/VIAL ONE (18:44)
[2023-03-24 20:01] VITALS: BP 125/85; TEMP 98.4; O2SAT 100
== END 2023-03-24 19:06 | disposition home or self-care (01) ==
LOC: ER 16:43
DX: L03.211 Cellulitis of face (principal); J01.90 Acute sinusitis, unspecified; F20.9 Schizophrenia, unspecified
CPT/HCPCS: 96365; 85025; 36415; 80053; 70487; 76377; 99284; Q9967; J0696